=== PATIENT | female | born 1930 | race Caucasian/White ===

== ENCOUNTER 2016-03-22 15:50 | Inpatient (IN) | payer OTHER ==
--- NOTE | 2016-03-22 17:31 | ED EKG INTERP ---
EKG Interpretation - EKG Time of EKG reading by physician:: 17:08 EKG Read and Signed by:: Kati Fallon Jr EKG Interpretation (*Must complete 3 of following elements*): Abnormal (septal infarct age undetermined) Rate: 74 Rhythm: sinus with 1st av block Attestation - Scribe Verification/Attestation Scribe:: Lili Bean Acting as Scribe for:: Kati Fallon Jr Scribe documention review:: This chart was documented by a scribe and accurately reflects the service the provider performed and the decisions made by the provider.
--- NOTE | 2016-03-22 18:14 | PROVIDER DOCUMENTATION ---
HPI-Fever - General Chief Complaint: Weakness Stated Complaint: HYPOTENSION, FEVER Time Seen by Provider: 03/22/16 17:55 Source: patient, family Allergies/Adverse Reactions: Patient Allergies Allergy/AdvReac Type Severity Reaction Status Date / Time acetaminophen [From Percocet] Allergy ITCHING Verified 03/22/16 16:40 celecoxib [From Celebrex] Allergy HEADACHE Verified 03/22/16 16:40 cephalexin monohydrate * Allergy RASH Verified 03/22/16 16:40 [From Keflex] chlorzoxazone Allergy HEADACHE Verified 03/22/16 16:40 [From Parafon Forte] choline salicylate Allergy RASH Verified 03/22/16 16:40 [From Trilisate] diclofenac sodium * Allergy HEADACHE Verified 03/22/16 16:40 [From Voltaren] doxycycline calcium * Allergy RASH Verified 03/22/16 16:40 [From Vibramycin] doxycycline hyclate * Allergy RASH Verified 03/22/16 16:40 [From Vibramycin] doxycycline monohydrate * Allergy RASH Verified 03/22/16 16:40 [From Vibramycin] erythromycin base Allergy NAUSEA/VOMI Verified 03/22/16 16:40 [From E-Mycin] TING fenoprofen calcium * Allergy HEADACHE Verified 03/22/16 16:40 [From Nalfon] ibuprofen [From Motrin] Allergy RASH Verified 03/22/16 16:40 magnesium salicylate Allergy RASH Verified 03/22/16 16:40 [From Trilisate] meperidine HCl * Allergy DIZZINESS Verified 03/22/16 16:40 [From Mepergan] mesalamine [From Asacol] Allergy HEADACHE Verified 03/22/16 16:40 naproxen [From Naprosyn] Allergy HEADACHE Verified 03/22/16 16:40 ofloxacin [From Floxin] Allergy HEADACHE Verified 03/22/16 16:40 oxycodone HCl * Allergy ITCHING Verified 03/22/16 16:40 [From Percocet] Penicillins Allergy RASH Verified 03/22/16 16:40 piroxicam [From Feldene] Allergy HEADACHE Verified 03/22/16 16:40 promethazine HCl * Allergy DIZZINESS Verified 03/22/16 16:40 [From Mepergan] rofecoxib [From Vioxx] Allergy SWELLING Verified 03/22/16 16:40 sulfasalazine Allergy NAUSEA/VOMI Verified 03/22/16 16:40 TING sulindac [From Clinoril] Allergy NAUSEA/VOMI Verified 03/22/16 16:40 TING tolmetin sodium * Allergy RASH Verified 03/22/16 16:40 [From Tolectin] Home Medications: ATORVAstatin [Lipitor] 20 mg PO DAILY 03/11/16 Acetaminophen [Tylenol Extra Strength] 500 mg PO DAILY 03/11/16 Apixaban [Eliquis] 2.5 mg PO BID 03/11/16 Carvedilol 12.5 mg PO BID 03/11/16 Cinacalcet HCl [Sensipar] 30 mg PO DAILY 03/11/16 Ferrous Sulfate 325 mg PO BID 03/11/16 Fluoxetine [Prozac] 20 mg PO BID 03/11/16 Hydralazine [Apresoline] 25 mg PO TID 03/11/16 LISINOpril [Prinivil] 10 mg PO DAILY 03/11/16 Prednisone 5 mg PO DAILY 03/11/16 Torsemide 100 mg PO DAILY 03/11/16 Trazodone [Desyrel] 50 mg PO QHS 03/11/16 - History of Present Illness-Fever Nature of Presenting Problem: 86 year old F presents to the ED with a cc of a fever this afternoon of 102. PT was given Tylenol for the fever at 1330 and on arrival pts fever was 98.6. Pt was admitted on 03/11/16 for cellulites and new onset of CHF. Pt was released on 03/16/16. PT states 2-3 days after getting home, pt states that she began feeling bad again. PT c/o weakness, decreased appetite, nasal drainage, and fever. PT also c/o nausea and diarrhea that has since resolved. Fever Severity/Quality: reports: greater than 102 F Onset/Duration: reports: this afternoon Timing: reports: resolved prior to arrival Severity: reports: mild Context: reports: other (IV infusions of Meropenum 1 gram x2 daily) Recent Illness?: reports: other (cellulitis) Fever Therapy PACKAGE CHECKER: Initiated Tylenol Cognitive Baseline: alert, oriented x3 Associated Symptoms: reports: diarrhea, fever/chills, loss of appetite, sinus congestion/drainage, nausea, weakness Similar Symptoms Previously?: No Recently seen or treated by another doctor?: Yes Review of Systems - Adult - REVIEW OF SYSTEMS - ADULT Constitutional: reports: fever. denies: chills Eyes: reports: no symptoms reported Ears, Nose, Mouth & Throat: denies: ear pain, throat pain Cardiovascular: denies: chest pain, palpitations Respiratory: reports: dyspnea on exertion. denies: cough, shortness of breath Gastrointestinal: reports: diarrhea, nausea. denies: abdominal pain, vomiting Genitourinary: denies: dysuria, hematuria Musculoskeletal: denies: muscle aches, muscle weakness Integumentary: reports: other (cellulitis). denies: skin sores/ulcer, skin thickening Neurological: denies: dizziness/vertigo, headache/migraines Psychiatric: reports: no symptoms reported Endocrine: reports: no symptoms reported Hematologic/Lymphatic: reports: no symptoms reported Allergic/Immunologic: reports: no symptoms reported All Other Systems: Reviewed and Negative Past History - Adult - PAST MEDICAL HISTORY-ADULT Review of Records: reports: Nursing Assessment Review, Medications Reviewed Major Childhood Illnesses: reports: denies history Cardiovascular: reports: CHF, HTN, pacemaker Genitourinary: reports: kidney disease - PRIOR SURGERIES/PROCEDURES Surgical/Procedure History: reports: cholecystectomy, hysterectomy, orthopedic ( extremity), other (Cataract) - IMMUNIZATION STATUS Childhood Immunizations: See Nurse Assessment Flu Vaccine: See Nurse Assessment - FAMILY HISTORY Family History: reviewed, not pertinent - SOCIAL HISTORY Smoking: non-smoker Substance Use: none/never Alcohol Use Frequency: never Physical Exam-General - PHYSICAL EXAM-ADULT Initial Vital Signs Reviewed: Yes - CONSTITUTIONAL General Appearance: appears well, alert, no apparent distress - RESPIRATORY Respiratory: chest non-tender, lungs clear, normal breath sounds - CARDIOVASCULAR Cardiovascular: normal peripheral pulses, regular rate, rhythm, no edema - GASTROINTESTINAL (ABDOMEN) Abdominal Exam: normal bowel sounds, non tender, soft - MUSCULOSKELETAL Extremity: pedal edema (1+ bilateral lower extremities) - SKIN Integumentary: warm (left lower extremity with edema and cellulitis just above left ankle) - PSYCHIATRIC Psych/Mental Status: normal mood/affect, normal thought content, normal thought process, oriented x 3 Progress - PLAN OF CARE/RESULTS Progress/Plan/Lab Results: plan of care: imaging, labs, medications Orders Category Date Time Status Cardiac Monitoring DIRECTED Care 03/22/16 17:56 Active Oxygen Therapy- ED Nursing DIRECTED Care 03/22/16 17:56 Active Saline Loc NOW Care 03/22/16 17:56 Active CHEST-2 VIEWS [RAD] Stat Exams 03/22/16 17:56 Taken BLOOD CULTURE [BLDCUL] Stat Lab 03/22/16 18:05 Results CBC WITH ELECTRONIC DIFF [HEME] Stat Lab 03/22/16 18:10 Completed CK PROFILE [SP CHEM] Stat Lab 03/22/16 18:10 Completed COMPREHENSIVE METABOLIC PANEL [CHEM] Stat Lab 03/22/16 18:10 Completed D-DIMER [CHEM] Stat Lab 03/22/16 18:10 Completed MAGNESIUM [CHEM] Stat Lab 03/22/16 18:10 Completed PRO B-NATRIURETIC PEPTIDE Stat Lab 03/22/16 18:10 Completed PROTIME WITH INR [COAG] Stat Lab 03/22/16 18:10 Completed PTT [COAG] Stat Lab 03/22/16 18:10 Completed TROPONIN T Stat Lab 03/22/16 18:10 Completed UA NIMS W/REFLEX CULT [URINALYSIS] Stat Lab 03/22/16 18:44 Completed Vancomycin 1 gm/Ns 250 ml Med 03/22/16 20:20 Active IV NOW Laboratory Tests 03/22/16 03/22/16 03/22/16 18:10 18:10 18:10 WBC 4.68 L RBC 2.73 L Hgb 8.1 L Hct 26.1 L MCV 95.6 MCH 29.7 MCHC 31.0 L RDW Std Deviation 14.0 Plt Count 193 D MPV 9.4 Immature Gran % (Auto) 2.4 H Neut % (Auto) 80.3 H Lymph % (Auto) 7.1 L [place] % (Auto) 4.7 Eos % (Auto) 5.1 Baso % (Auto) 0.4 Immature Gran # (Auto) 0.11 H Neut # (Auto) 3.76 Lymph # (Auto) 0.33 L [place] # (Auto) 0.22 Eos # (Auto) 0.24 Baso # (Auto) 0.02 PT INR PTT (Actin FS) D-Dimer 0.85 H Sodium 134 L Potassium 3.6 Chloride 96 L Carbon Dioxide 24 L Anion Gap 14 BUN 53 H Creatinine 1.9 H Estimated GFR/1.73 m2 25 BUN/Creatinine Ratio 28 Glucose 102 Calculated Osmolality 283 Calcium 7.6 L Magnesium 1.4 L Total Bilirubin 0.46 AST 36 H ALT 16 Alkaline Phosphatase 68 Creatine Kinase 60 Troponin T Rhh-V-Ugosipdirmd Pept Total Protein 5.1 L Albumin 3.0 L Globulin 2.1 Albumin/Globulin Ratio 1.4 Urine Source Urine Color Urine Turbidity Urine pH Ur Specific [place] Urine Protein Ur Glucose (Stick) Ur Ketones (Stick) Urine Blood Urine Nitrite Urine Bilirubin Urobilinogen Dipstick Urine Leukocytes Urine WBC (Auto) Urine RBC (Auto) U Epithel Cells (Auto) Urine Bacteria (Auto) 03/22/16 03/22/16 03/22/16 18:10 18:10 18:10 WBC RBC Hgb Hct MCV MCH MCHC RDW Std Deviation Plt Count MPV Immature Gran % (Auto) Neut % (Auto) Lymph % (Auto) [place] % (Auto) Eos % (Auto) Baso % (Auto) Immature Gran # (Auto) Neut # (Auto) Lymph # (Auto) [place] # (Auto) Eos # (Auto) Baso # (Auto) PT 13.4 H INR 1.26 PTT (Actin FS) 34.1 D-Dimer Sodium Potassium Chloride Carbon Dioxide Anion Gap BUN Creatinine Estimated GFR/1.73 m2 BUN/Creatinine Ratio Glucose Calculated Osmolality Calcium Magnesium Total Bilirubin AST ALT Alkaline Phosphatase Creatine Kinase Troponin T 0.032 Xgx-G-Ivkfhwibyaw Pept 5218 H Total Protein Albumin Globulin Albumin/Globulin Ratio Urine Source Urine Color Urine Turbidity Urine pH Ur Specific [place] Urine Protein Ur Glucose (Stick) Ur Ketones (Stick) Urine Blood Urine Nitrite Urine Bilirubin Urobilinogen Dipstick Urine Leukocytes Urine WBC (Auto) Urine RBC (Auto) U Epithel Cells (Auto) Urine Bacteria (Auto) 03/22/16 18:44 WBC RBC Hgb Hct MCV MCH MCHC RDW Std Deviation Plt Count MPV Immature Gran % (Auto) Neut % (Auto) Lymph % (Auto) [place] % (Auto) Eos % (Auto) Baso % (Auto) Immature Gran # (Auto) Neut # (Auto) Lymph # (Auto) [place] # (Auto) Eos # (Auto) Baso # (Auto) PT INR PTT (Actin FS) D-Dimer Sodium Potassium Chloride Carbon Dioxide Anion Gap BUN Creatinine Estimated GFR/1.73 m2 BUN/Creatinine Ratio Glucose Calculated Osmolality Calcium Magnesium Total Bilirubin AST ALT Alkaline Phosphatase Creatine Kinase Troponin T Esm-Y-Fgbnoxoekgw Pept Total Protein Albumin Globulin Albumin/Globulin Ratio Urine Source CATH Urine Color YELLOW Urine Turbidity CLEAR Urine pH 5.5 Ur Specific [place] 1.006 Urine Protein TRACE A Ur Glucose (Stick) NEGATIVE Ur Ketones (Stick) NEGATIVE Urine Blood SMALL A Urine Nitrite NEGATIVE Urine Bilirubin NEGATIVE Urobilinogen Dipstick NORMAL Urine Leukocytes NEGATIVE Urine WBC (Auto) <10 Urine RBC (Auto) <10 U Epithel Cells (Auto) <10 Urine Bacteria (Auto) NEGATIVE Vital Signs - 24 hr 03/22/16 03/22/16 03/22/16 16:00 17:46 19:58 Temperature 98.6 F Pulse Rate 78 76 78 Respiratory 16 16 20 Rate Blood Pressure 111/58 98/60 97/58 O2 Sat by Pulse 93 L 88 L 97 Oximetry Pt/family given results. Pt will be admitted to the hospitalist group. PT/ Family in agreement with plan of care. - XRAY 1 XRAY Study: Chest XRAY Interpretation: unchanged from 03/16/16: Dr. Morales - CONSULTS/PCP/HOSPITALIST Notification #1 *Consult/PCP/Hospitalist*: Dr. Armenta Time Discussed: 20:17 Consult Disposition: Will see in ED, Admit Departure - Departure Time of Disposition Order: 20:21 DIAGNOSIS: Cellulitis of left leg Disposition: ADMITTED INPATIENT 09 Certified Medical Emergency: Emergent Condition: Good Attestation - Scribe Verification/Attestation Scribe:: Caroline Mackay Acting as Scribe for:: Pedro Morales Scribe documention review:: This chart was documented by a scribe and accurately reflects the service the provider performed and the decisions made by the provider. Physician Attestation - Physician Attestation I, the provider, attest to the following statement:: Pedro Morales Physician documentation Attestation:: This documentation recorded by the scribe accurately reflects the service I personally performed and the decisions made by me.
[2016-03-22 18:26] LABS: MANUAL DIFF NEEDED? NO
[2016-03-22 18:42] LABS: BASO% 0.4 % (0.0-0.8); EOS# 0.24 X1000 (0.0-0.7); EOS% 5.1 % (0.0-10.0); HEMATOCRIT 26.1 % (37.0-47.0); HEMOGLOBIN 8.1 g/dL (12.0-16.0); IMM GRAN# 0.11 X1000 (0.0-0.04); IMM GRAN% 2.4 % (0.0-0.5); LYMPH# 0.33 X1000 (1.2-3.4); LYMPH% 7.1 % (20.5-51.1); MCH 29.7 PG (27-31); MCV 95.6 FL (81-99); MONO# 0.22 X1000 (0.11-0.59); MONO% 4.7 % (1.7-9.3); MPV 9.4 FL (7.4-10.4); NEUT% 80.3 % (42.2-75.2); PLT 193 X1000 (130-400); RBC 2.73 XMIL (4.2-5.4)
[2016-03-22 18:46] LABS: INR 1.26; PROTIME 13.4 Seconds (9.2-11.7); PTT 34.1 Seconds (22.0-36.0)
[2016-03-22 18:51] LABS: URINE CULTURE NEEDED? NO; URINE MICRO REVIEW NEEDED? NO; URINE SOURCE CATH
[2016-03-22 18:57] LABS: BILIRUBIN URINE NEGATIVE (NEGATIVE); BLOOD URINE SMALL (NEGATIVE); COLOR YELLOW; GLUCOSE URINE NEGATIVE (NEGATIVE); LEUKOCYTES URINE NEGATIVE (NEGATIVE); NITRITE URINE NEGATIVE (NEGATIVE); PH URINE 5.5; PROTEIN URINE TRACE mg/dL (NEGATIVE); SP GRAVITY URINE 1.006; TURBIDITY URINE CLEAR (CLEAR); UROBILINOGEN URINE NORMAL (NORMAL)
[2016-03-22 18:58] LABS: UR EPITHELIAL CELLS <10 /HPF (<10); URINE BACTERIA NEGATIVE /HPF; URINE RBC <10 /HPF (<10); URINE WBC <10 /HPF (<10)
[2016-03-22 19:02] LABS: CALCIUM 7.6 mg/dL (8.8-10.2); MAGNESIUM 1.4 mg/dL (1.5-2.7); POTASSIUM 3.6 mmol/L (3.5-5.1); TOTAL BILIRUBIN 0.46 mg/dL (0.20-1.00); TOTAL PROTEIN 5.1 g/dL (6.3-8.3)
[2016-03-22] MEDS ORDERED: VANCOMYCIN 1 GM/NS 250 ML IV ONE (20:20)
--- NOTE | 2016-03-22 22:52 | HISTORY AND PHYSICAL ---
CHIEF COMPLAINT: Fever, weakness for several days. HISTORY OF PRESENTING ILLNESS: An 86-year-old female with a history of chronic kidney disease, hypertension, pacemaker placement, had presented to emergency department with complaint of having some fever and worsening weakness. Patient apparently had a dog scratch around [facility] about a week ago and was hospitalized and was started on antibiotics. She went home with a PICC line with IV infusions of antibiotics on outpatient basis. She started developing fevers and felt more weak and stated that the leg was hurting and subsequently she had come to the emergency department. In the ER, she was evaluated. Due to her presenting symptoms, it was thought that she would need hospitalization for further management. At the time of my examination, she denied any headache, nausea, vomiting, diarrhea, chest pain, shortness of breath, hemoptysis or weight changes but complained of left lower extremity pain and just not feeling well. PAST MEDICAL HISTORY: Include chronic kidney disease, hypertension, pacemaker. PAST SURGICAL HISTORY: Bilateral knee replacement, back surgery, neck surgery, cataract surgery, colectomy, appendectomy, hysterectomy. ALLERGIES: TO MULTIPLE MEDICATIONS INCLUDE ACETAMINOPHEN, CELEBREX, KEFLEX AND MANY OTHER MEDICINES LISTED IN THE MAR. CURRENT MEDICATIONS: As listed in MAR. SOCIAL HISTORY: She is a former smoker. History of social alcohol use. Denies any illicit drug use. She lives alone in her own home and she is visiting from [place]. FAMILY HISTORY: No history of coronary disease in family members. REVIEW OF SYSTEMS: Twelve point review of systems is as in HPI. Other systems negative. PHYSICAL EXAMINATION: GENERAL: Cooperative, friendly female, she is resting comfortably now. VITAL SIGNS: Temperature 98.8 degrees, pulse 93, respiration 20, blood pressure 127/71, saturating 98%. HEENT: Atraumatic, normocephalic. Extraocular movements intact. PERRLA. NECK: No masses. CHEST: Bibasilar rales. CARDIOVASCULAR: Regular rate and rhythm. ABDOMEN: Soft. Positive bowel sounds. EXTREMITY: Left lower extremity edema and erythema. NEURO: She is awake, alert, oriented x2. : No bladder distention. SKIN: There is moderate warmth in the left lower extremity. LABORATORIES AND STUDIES: WBC 4.68, hemoglobin 8.1, hematocrit 26.1, platelets 193,000. Sodium 134, potassium 3.6, chloride 96, CO2 is 24, BUN is 53, creatinine 1.9, glucose 102. ASSESSMENT: This 86-year-old elderly female with a history of chronic kidney disease, hypertension and previous pacemaker placement had presented to emergency department complained of worsening weakness and intermittent fevers. The patient recently had been treated for dog scratch with IV antibiotics. She states that she was not improving and subsequently the patient will need hospitalization for further management. 1. Generalized weakness, multifactorial. 2. Fever unclear etiology. 3. Dog scratch, recently put on intravenous antibiotics. 4. Left lower extremity cellulitis. 5. Chronic kidney disease. PLAN: 1. We will admit patient to medical floor with telemetry. 2. Will check blood cultures and continue patient on antibiotics. 3. We will consult infectious disease. Will have been monitoring patient outpatient. 4. We will continue to monitor her renal function. 5. Will suggest physical therapy. 6. We will continue with the DVT prophylaxis with Eliquis that she is already. 7. We will continue to follow and reassess.
[2016-03-23] MEDS ORDERED: VANCOMYCIN IV PER PHARMACY MISC SCH (00:27)
[2016-03-23] MEDS ORDERED: TYLENOL PO ONE (00:42)
[2016-03-23] MEDS ORDERED: VANCOMYCIN 250 MG in NS 100 ML IV ONE (02:00)
[2016-03-23 04:45] LABS: MANUAL DIFF NEEDED? NO
[2016-03-23 05:14] LABS: BASO% 0.5 % (0.0-0.8); CALCIUM 7.1 mg/dL (8.8-10.2); EOS# 0.43 X1000 (0.0-0.7); EOS% 10.6 % (0.0-10.0); HEMATOCRIT 26.3 % (37.0-47.0); HEMOGLOBIN 8.3 g/dL (12.0-16.0); IMM GRAN# 0.09 X1000 (0.0-0.04); IMM GRAN% 2.2 % (0.0-0.5); LYMPH# 0.31 X1000 (1.2-3.4); LYMPH% 7.6 % (20.5-51.1); MCH 30.3 PG (27-31); MCHC 31.6 g/dL (33-37); MONO# 0.13 X1000 (0.11-0.59); MONO% 3.2 % (1.7-9.3); MPV 9.5 FL (7.4-10.4); NEUT% 75.9 % (42.2-75.2); PLT 177 X1000 (130-400); POTASSIUM 3.3 mmol/L (3.5-5.1); RBC 2.74 XMIL (4.2-5.4)
--- NOTE | 2016-03-23 07:48 | EKG Report ---
Test Performed on : 03/22/2016 5:08:58 PM Test Reason : Done in ED/No order in [employer] Blood Pressure : / mmHG Vent. Rate : 074 BPM Atrial Rate : 074 BPM P-R Int : 226 ms QRS Dur : 098 ms QT Int : 450 ms P-R-T Axes : 080 -15 047 degrees QTc Int : 499 ms Sinus rhythm. with 1st degree AV block. Septal infarct (cited on or before 11-MAR-2016) Abnormal ECG When compared with ECG of 11-MAR-2016 13:49, Sinus rhythm. has replaced Electronic atrial pacemaker Questionable change in initial forces of Anterior leads T wave inversion less evident in Anterior leads Unconfirmed Result
--- NOTE | 2016-03-23 07:48 | EKG Report ---
Test Performed on : 03/22/2016 7:47:26 PM Test Reason : Done in ED/No order in [employer] Blood Pressure : / mmHG Vent. Rate : 097 BPM Atrial Rate : 097 BPM P-R Int : 138 ms QRS Dur : 090 ms QT Int : 372 ms P-R-T Axes : 082 092 096 degrees QTc Int : 472 ms Poor data quality, interpretation may be adversely affected Normal sinus rhythm. Rightward axis Anterior infarct (cited on or before 11-MAR-2016) Abnormal ECG When compared with ECG of 22-MAR-2016 17:08, (Unconfirmed) FL interval has decreased Questionable change in initial forces of Anterior leads Unconfirmed Result
--- NOTE | 2016-03-23 08:20 | Diag Imaging Result Document ---
PROCEDURE NAME: CHEST-2 VIEWS - 03/22/2016 PA AND LATERAL RADIOGRAPH OF THE CHEST: COMPARISON: 03/16/2016. FINDINGS: Mild opacity at the lung bases suggesting atelectasis and/or infiltrate that can be seen on previous studies is approximately stable. No new consolidations are identified. Cardiac silhouette is stable. IMPRESSION: Stable chest.
--- NOTE | 2016-03-23 08:48 | PROGRESS NOTE ---
DATE: 03/23/2016 CONCLUSION: The patient was admitted to the hospital because she started having a high fever at home. Also, she felt very weak. The exact etiology of the illness is uncertain to me. Possibly, the patient developed a superinfection either in her lung, for which she is being treated for pneumonia, or originating from her PICC. Another possibility would be that the patient became allergic to the antibiotic she was taking at home intravenously, namely meropenem, and of the allergy caused her to have fever rather than a rash. Recommendations-pending culture results and chest x-ray results I have put the patient on micafungin. The patient already has been placed on vancomycin and meropenem has been discontinued. The patient also was being treated for a left leg cellulitis due to a dog bite. This has improved quite a bit. PRESENT ILLNESS: The patient told me she was doing well at home until yesterday when she became weak and had a fever up to 103. Earlier, she had diarrhea but this cleared and she has not had any diarrhea in the past 2-3 days. The patient has not noticed a rash either. LAB AND X-RAY: Chest x-ray has been taken. The report is pending. Lab work done shows a CBC with a white count of 4070, hemoglobin 8.3, and platelet count 177,000. The liver function tests are normal. Blood cultures are pending, as is the report of the chest x-ray. Creatinine is 1.8. GFR is 27. ASSESSMENT AND PLAN: The patient has pneumonia and was receiving meropenem for it. Whether she still has it or has a superimposed pneumonia is uncertain. I am waiting for the chest x-ray report. The patient could have a Port-A-Cath infection causing bacteremia or fungemia. Given the fact that she was on meropenem, which has a very broad-spectrum of antibacterial coverage, I would think that a bacterial infection might not have occurred except for one due to a staphylococcus that was resistant to oxacillin or the patient developed a fungal superinfection. Since the patient already is on vancomycin, I went ahead and added micafungin. PHYSICAL EXAMINATION: Vital Signs: Temperature was 100.2 and now it is 98, pulse 81, respirations 16. Blood pressure 93/54. General: This is a somewhat ill- appearing, elderly female. She is in no acute distress. Head, Eyes, Ears, Nose, and Throat: She can hear my spoken words and see near objects. There were no white patches on her tongue. Neck: No meningismus. Thorax: No increased AP diameter of the chest. Cardiovascular: Heart rate is regular. I thought I heard a soft systolic murmur. Abdomen: Soft and nontender. Extremities: The patient's left leg where she had cellulitis is almost completely healed. She has a PICC in the left arm. The PICC site is not erythematous or swollen. COMORBIDITIES: Include she is elderly. She also has multiple drug allergies and she developed cellulitis in the leg secondary to a dog bite. [facility]
[2016-03-23] MEDS ORDERED: DEMADEX PO SCH (09:00)
[2016-03-23] MEDS ORDERED: MYCAMINE 100 MG in NS 100 ML IV SCH (09:00)
[2016-03-23] MEDS ORDERED: NORVASC PO SCH (09:00)
[2016-03-23] MEDS ORDERED: COREG PO SCH (09:00)
[2016-03-23] MEDS: TYLENOL PO PRN (09:50)
[2016-03-23] MEDS: APRESOLINE PO SCH ×2 (10:11→14:16)
[2016-03-23] MEDS: PRILOSEC PO SCH (10:11)
[2016-03-23] MEDS: DEMADEX PO SCH (10:12)
[2016-03-23] MEDS: ELIQUIS PO SCH ×2 (10:12→21:51)
[2016-03-23] MEDS: FERROUS SULFATE PO SCH ×2 (10:13→21:52)
[2016-03-23] MEDS: SENSIPAR PO SCH (10:14)
[2016-03-23] MEDS: PROZAC PO SCH ×2 (10:14→21:51)
[2016-03-23] MEDS: PREDNISONE PO SCH (10:14)
[2016-03-23] MEDS: PRINIVIL PO SCH (10:14)
[2016-03-23] MEDS: LIPITOR PO SCH (11:12)
[2016-03-23] MEDS ORDERED: BENADRYL IV PRN (12:45)
[2016-03-23] MEDS ORDERED: SOLU-CORTEF IV ONE (14:18)
[2016-03-23] MEDS ORDERED: HYDROXYZINE IM ONE (14:19)
--- NOTE | 2016-03-23 16:03 | PROGRESS NOTE ---
DATE: 03/23/2016 SUBJECTIVE: Patient is feeling fine. She reports no longer having fever. Denies any chills. No nausea or vomiting. OBJECTIVE: Vital Signs: Temperature 97.7 degrees, heart rate 74, respiratory rate 18, blood pressure 97/53, O2 saturation 93% on room air. General Examination: This is an 86-year-old female lying in bed, in no acute distress. HEENT: Head is normocephalic, atraumatic. Anicteric sclerae and pale conjunctivae. Mucous membranes moist. Neck: Supple. No JVD noted. No carotid bruits. No lymphadenopathy. No thyromegaly. Cardiovascular: S1, S2 heard. No murmurs, gallops, or rubs. Regular rate and rhythm. Respiratory: Clear bilaterally to auscultation. No work of breathing or using accessory muscles. Abdomen: Soft, nontender to palpation. Bowel sounds present. No organomegaly. Extremities: Left lower extremity with some reddening and warmth and also some scaling scattered all over that extremity. Peripheral pulses present in both legs. Neurological: Patient is alert and oriented x3. Able to move 4 extremities. Cranial nerves 2-12 grossly normal. LABORATORY DATA: White cell count 4.07, hemoglobin 8.3, hematocrit 26.3. Platelets 177,000. BMP shows sodium 137, potassium 3.3, chloride 199, bicarbonate 23, BUN 51, creatinine 1.8, glucose 88. ASSESSMENT AND PLAN: Left lower extremity cellulitis. Patient has been started on vancomycin per pharmacy and Dr. Travis from Infectious Disease has been consulted. One dose of micafungin has been given, but apparently the patient had a reaction with itching, so that medication has been stopped. At this point, we will follow recommendations from Dr. Travis.
[2016-03-23] MEDS: NS 1,000 ML IV SCH ×2 (18:03→18:15)
[2016-03-23] MEDS: DESYREL PO SCH (21:51)
[2016-03-23] MEDS: HYDROXYZINE PO PRN (21:52)
[2016-03-23] MEDS ORDERED: CALMOSEPTINE OINTMENT TOP PRN (22:04)
[2016-03-23] MEDS: SOLU-CORTEF IV SCH (22:26)
[2016-03-24 05:50] LABS: MANUAL DIFF NEEDED? NO
[2016-03-24 06:03] LABS: BASO% 1.5 % (0.0-0.8); EOS# 0.04 X1000 (0.0-0.7); EOS% 1.2 % (0.0-10.0); HEMATOCRIT 28.1 % (37.0-47.0); HEMOGLOBIN 8.6 g/dL (12.0-16.0); IMM GRAN# 0.07 X1000 (0.0-0.04); IMM GRAN% 2.1 % (0.0-0.5); LYMPH# 1.04 X1000 (1.2-3.4); LYMPH% 30.7 % (20.5-51.1); MCH 29.2 PG (27-31); MCHC 30.6 g/dL (33-37); MCV 95.3 FL (81-99); MONO# 0.17 X1000 (0.11-0.59); MPV 9.8 FL (7.4-10.4); NEUT% 59.5 % (42.2-75.2); PLT 188 X1000 (130-400); RBC 2.95 XMIL (4.2-5.4)
[2016-03-24] MEDS: PRILOSEC PO SCH (06:03)
[2016-03-24] MEDS: NS 1,000 ML IV SCH ×2 (06:03→18:48)
[2016-03-24] MEDS: SOLU-CORTEF IV SCH ×3 (06:03→23:52)
[2016-03-24] MEDS: HYDROXYZINE PO PRN ×2 (06:05→20:41)
[2016-03-24 06:14] LABS: POTASSIUM 3.9 mmol/L (3.5-5.1)
--- NOTE | 2016-03-24 06:29 | PROGRESS NOTE ---
DATE: 03/24/2016 PRESENT ILLNESS: The patient had been taking meropenem at home for pneumonia. She came into the hospital with a high fever, felt very weak. She also had pruritus. A feeling was that the patient's meropenem, which she was taking at home may have caused the patient to have an allergic reaction. The other possibilities would be that the patient had developed some type of super infection either from her PICC or in her lungs. In that regard one of two blood cultures is growing coag negative staph. The patient also has leg cellulitis secondary to dog bites, but that has improved. MEDICATIONS: Currently, the patient is taking vancomycin as a single agent. Yesterday, she was started on micafungin, but developed a lot of itching and rash to that as well. Therefore, it was discontinued. PHYSICAL EXAMINATION: Vital Signs: Temperature is 97.6, pulse 78, respirations 18, blood pressure 134/76. General: This is a somewhat ill-appearing, elderly female. She is scratching herself a little bit because she itches. There is a red punctate rash. Heart : Rate is regular. Lungs: Clear to auscultation. Patient is not coughing or short of breath. Abdomen: Soft and nontender. Extremities: The left arm PICC site is not erythematous or draining. Integument: Patient did have some macular erythematous lesions. LAB AND X-RAY: Today, as of yet, there is no lab or x-ray results. ASSESSMENT AND PLAN: The patient was being treated at home for in for a pneumonia. Her chest x- ray shows that there were basilar opacities, which had not changed substantially. For now, I would like to continue with vancomycin as a single agent pending culture results. COMORBIDITIES: Include the following. She is elderly. She has multiple drug allergies and she has a dog bite to the leg which resulted in cellulitis. [facility]
[2016-03-24 06:33] LABS: CALCIUM 6.8 mg/dL (8.8-10.2)
[2016-03-24] MEDS: TYLENOL PO PRN ×2 (06:39→20:36)
[2016-03-24] MEDS ORDERED: CALCIUM GLUCONATE 1 GM in NS 50 ML IV ONE (07:41)
[2016-03-24] MEDS: SENSIPAR PO SCH (08:53)
[2016-03-24] MEDS: DEMADEX PO SCH (08:54)
[2016-03-24] MEDS: PREDNISONE PO SCH (08:54)
[2016-03-24] MEDS: FERROUS SULFATE PO SCH ×2 (08:54→20:37)
[2016-03-24] MEDS: LIPITOR PO SCH (08:54)
[2016-03-24] MEDS: PRINIVIL PO SCH (08:54)
[2016-03-24] MEDS: PROZAC PO SCH ×2 (08:55→20:37)
[2016-03-24] MEDS: ELIQUIS PO SCH ×2 (08:55→20:36)
[2016-03-24] MEDS ORDERED: STERILE WATER INJ. ONE (13:30)
[2016-03-24] MEDS ORDERED: KLOR-CON PO ONE (16:24)
--- NOTE | 2016-03-24 17:16 | PROGRESS NOTE ---
DATE: 03/24/2016 SUBJECTIVE: Ms. Brown is sitting up in a chair. She was feeling better. Riddle like her legs are better. Still had a Krueger catheter in. OBJECTIVE: Vital signs: Temperature 97.6, pulse 75, respirations 16, blood pressure 124/55. Neck: CVP less than 6 cm. Lungs: Clear in all lung patel. Cardiovascular: Regular rhythm and rate without murmur or S3. : Good urine output from yesterday, 2 L. LAB: Reviewed from today white count 3390, hematocrit was 28, platelet count 188,000. Sodium 142, potassium 3.9, chloride 101, bicarb 25, BUN 58, creatinine 2.0. Her calcium was 6.8. ASSESSMENT AND PLAN: 1. The patient being treated at home for pneumonia. Her chest x-ray shows there are bibasilar opacities, which did not change substantially. Came to the hospital with high fever and feeling weak. She would like to continue with vancomycin. The exact etiology of the illness is uncertain. Possibly patient developed a superinfection, either in her lung for which she is being treated for pneumonia or originating from PICC line. Possibly, the patient became allergic to antibiotic he was taking at home intravenously which is meropenem and the allergy could have caused her to have a fever. She has been placed on vancomycin and meropenem has been discontinued. 2. Treated for left leg cellulitis due to a dog bite. This is improved quite a bit. 3. She is eating well. 4. I am going to discontinue her Krueger catheter. 5. She was given 1 dose of micafungin, but apparently she had a reaction a rash and itching, so this was stopped. White count is down. She remains afebrile. Review of orders. I do not see any changes at this point. She is getting normal saline at 75 mL an hour. Hydrocortisone 50 mg IV q.8, Demadex 100 mg p.o. daily, vancomycin dosing every 60 hours, Prozac 20 mg b.i.d., Sensipar 30 mg daily, Prinivil 10 mg a day. Prednisone 5 mg a day. Iron 325 mg b.i.d., Lipitor 20 mg a day. Apixaban 2.5 mg b.i.d., trazodone 50 mg at bedtime.
[2016-03-24] MEDS: DESYREL PO SCH (20:37)
[2016-03-25] MEDS ORDERED: SODIUM CHLORIDE 0.9% 10 ML ONE (05:49)
[2016-03-25] MEDS: TYLENOL PO PRN (05:59)
[2016-03-25] MEDS: SOLU-CORTEF IV SCH ×2 (05:59→14:43)
[2016-03-25] MEDS: PRILOSEC PO SCH (06:00)
[2016-03-25 06:14] LABS: MANUAL DIFF NEEDED? NO
[2016-03-25 06:47] LABS: BASO% 0.4 % (0.0-0.8); EOS# 0.03 X1000 (0.0-0.7); EOS% 0.4 % (0.0-10.0); HEMATOCRIT 28.9 % (37.0-47.0); HEMOGLOBIN 8.9 g/dL (12.0-16.0); IMM GRAN# 0.05 X1000 (0.0-0.04); IMM GRAN% 0.6 % (0.0-0.5); LYMPH# 1.22 X1000 (1.2-3.4); MCH 29.5 PG (27-31); MCHC 30.8 g/dL (33-37); MCV 95.7 FL (81-99); MONO# 0.66 X1000 (0.11-0.59); MONO% 8.1 % (1.7-9.3); NEUT% 75.5 % (42.2-75.2); PLT 229 X1000 (130-400); RBC 3.02 XMIL (4.2-5.4)
[2016-03-25 07:03] LABS: POTASSIUM 3.6 mmol/L (3.5-5.1)
[2016-03-25] MEDS ORDERED: KLOR-CON PO SCH (09:00)
--- NOTE | 2016-03-25 09:04 | PROGRESS NOTE ---
DATE: 03/25/2016 PRESENT ILLNESS: The patient was being treated at home for cellulitis of the leg and pneumonia. She came in with a high fever despite being on meropenem. Her fever has abated since we stopped the antibiotic. She has had blood cultures drawn one of which grew a coagulase-negative Staph. I think this is actually a contaminant. She also received micafungin before the blood culture result was done and on that she started itching, so I think she has become allergic to that. The patient's chest x-ray shows bibasilar infiltrates that could be atelectasis and/or infection. The patient is not coughing. Her white count is not elevated and she does not have fever so I think her basilar infiltrates do not represent pneumonia. MEDICATIONS: The patient is on vancomycin now, unfortunately her creatinine is increasing. PHYSICAL EXAMINATION: Vital Signs: Temperature is 98.2 degrees, pulse 65, respirations 18. Blood pressure 154/76. Generally: This is an ill-appearing, elderly female. She is in no acute distress. Lungs: Clear to auscultation. Cardiovascular: Regular heart rate. Abdomen: Soft and nontender. Extremities: The left leg still has erythematous areas. I have noticed that when her leg is elevated the areas are less red. The patient has a PICC in the left arm and the site is not erythematous or swollen. LABORATORY/X-RAY: The CBC for today shows a white count of 8130, hemoglobin 8.9, platelet count 229,000. Creatinine is 2.2. GFR is 21. ASSESSMENT AND PLAN: At this time, I do not think the patient has an active infection with the possible exception of the left leg. The patient also has many drug allergies. I think it is possible that the basilar infiltrates and x-ray represent atelectasis rather than pneumonia. My plan now would be to stop all the antibiotics take out the patient's PICC and send her home on no antimicrobial therapy. I will see her back in my office in 2 weeks at which time I will examine her and check and see how cellulitis is doing and obtain a chest x-ray to see if there is any in the increase in the basilar infiltrates. As far as the positive blood culture we could possibly draw repeat blood cultures at that time when she sees me in the office. COMORBIDITIES: The patient's comorbidities are that she is elderly. She has multiple drug allergies. I plan to see the patient back in the office 2 weeks after discharge. We are going to have her PICC removed before she goes home.
[2016-03-25] MEDS: ELIQUIS PO SCH (10:04)
[2016-03-25] MEDS: LIPITOR PO SCH (10:04)
[2016-03-25] MEDS: PREDNISONE PO SCH (10:04)
[2016-03-25] MEDS: SENSIPAR PO SCH (10:04)
[2016-03-25] MEDS: PRINIVIL PO SCH (10:05)
[2016-03-25] MEDS: FERROUS SULFATE PO SCH (10:05)
[2016-03-25] MEDS: PROZAC PO SCH (10:05)
[2016-03-25] MEDS: NS 1,000 ML IV SCH (10:08)
[2016-03-25] MEDS ORDERED: STERILE WATER INJ. ONE (12:42)
[2016-03-25 13:43] VITALS: BP 126/83
[2016-03-25] MEDS ORDERED: VANCOMYCIN 900 MG in NS 250 ML IV SCH (14:00)
--- NOTE | 2016-03-26 12:41 | DISCHARGE SUMMARY ---
ADMISSION DATE: 03/22/2016 DISCHARGE DATE: 03/25/2016 SUBJECTIVE: She is an 86-year-old female with history of chronic kidney disease, hypertension, pacemaker placement who presented to the emergency department with complains of having some fever and worsening weakness. The patient apparently had a dog scratch around [place] time about a week ago. She was hospitalized and started on antibiotic. She went home with a PICC line, IV infusion and antibiotics as an outpatient basis. She started developing fever and felt more weak and stated that her leg was hurting subsequent she came here to the emergency room. In the emergency room she was evaluated and symptoms thought to need hospitalization for further management with possible cellulitis. I think the main concern was the cellulitis. PAST MEDICAL HISTORY: Chronic kidney disease, I am not sure what her baseline creatinine. Hypertension, pacemaker. PAST SURGICAL HISTORY: Bilateral knee replacement. Back surgery. Neck surgery. Cataract surgery. Colectomy, appendectomy, and hysterectomy. ALLERGIES: Multiple allergies including acetaminophen, Celebrex, Keflex and many others. SOCIAL HISTORY: She is a former smoker. No history of alcohol. HOSPITAL COURSE: She was admitted, started on some empiric antibiotics. Dr. Travis evaluated her. He is not convinced of whether she has any active cellulitis and she was treated at home for cellulitis in the leg and also treated for pneumonia. She came in with a high fever despite being on meropenem. Her fever abated since they stopped the antibiotic. She has had blood cultures drawn one of which grew coagulase-negative Staph and this is actually believed to be a contaminant. She also received Micafungin before the blood culture result was done and on that she started itching, We stopped the Micafungin and we have stopped all antibiotics. I have stopped the torsemide as review of her echo shows normal left ventricular function and I want to see if renal function can improve. When you look at her creatinine her creatinine level was 1.8 back in February and even in the early part of this month so I do believe that it can return to that. She wants to go home. I think she is also putting some Neosporin on her legs which may have made the erythema more pronounced and in fact giving her a secondary contact dermatitis. Blood counts have improved. Calcium level was a little bit low and I think that is from the torsemide. Creatinine 2.2. DISPOSITION: We will plan to discharge her. DISCHARGE MEDICATIONS: Eliquis 2.5 b.i.d., Lipitor 20 mg daily, Sensipar 30 mg a day, ferrous sulfate 325 b.i.d., Prozac 20 mg b.i.d., and lisinopril 10 mg a day. Klor-Con 20 mEq daily. Prednisone 5 mg a day, trazodone 50 mg at bedtime. DISCHARGE INSTRUCTIONS: She is to follow up with her cash accounting clerk next week and I would like her to get a BMP to check and see what her renal function is and check her calcium. Check potassium and magnesium.
== END 2016-03-25 17:59 | disposition home or self-care (01) | DRG 603 ==
LOC: EDUNIT# → EDBD → ED 15:50 → EDIPHOLD 22:40 → 4N 03-23 14:39 → DIRADM 03-24 13:59 → 4N 03-24 14:02
PROVIDERS: ATTEND Emergency Medicine
DX: L03.116 Cellulitis of left lower limb (principal); R50.2 Drug induced fever; S81.852A Open bite, left lower leg, initial encounter; J98.11 Atelectasis; L25.1 Unspecified contact dermatitis due to drugs in contact with skin; I12.9 Hypertensive chronic kidney disease with stage 1 through stage 4 chronic kidney disease, or unspecified chronic kidney disease; N18.9 Chronic kidney disease, unspecified; Z79.899 Other long term (current) drug therapy; Z79.52 Long term (current) use of systemic steroids; Z79.02 Long term (current) use of antithrombotics/antiplatelets; Z87.891 Personal history of nicotine dependence; Z95.0 Presence of cardiac pacemaker; Z96.653 Presence of artificial knee joint, bilateral; Z90.49 Acquired absence of other specified parts of digestive tract; T36.1X5A Adverse effect of cephalosporins and other beta-lactam antibiotics, initial encounter; T49.0X5A Adverse effect of local antifungal, anti-infective and anti-inflammatory drugs, initial encounter; T37.95XA Adverse effect of unspecified systemic anti-infective and antiparasitic, initial encounter
CPT/HCPCS: 51702; 71020; 80048; 80053; 81001; 82040; 82550; 82565; 83735; 83880; 84484; 85025; 85379; 85610; 85730; 87040; 87077; 87186; 93005; 96365; 96367; J0610; J1200; J1720; J2248; J3370; J3410; J7030; J7040; J7512; 97001-GP; 97116-GP